=== PATIENT | male | born 1980 | race Caucasian/White ===

== ENCOUNTER 2019-04-03 20:49 | Emergency (ER) | payer BC ==
[2019-04-03 21:11] VITALS: BP 130/74
--- NOTE | 2019-04-03 21:25 | UC ---
Laceration HPI - HPI Summary HPI Summary: 39-year-old male presents for laceration to his left cheek just below his left eye. States that approximately 6:45 PM he was [place] and accidentally walked into a small tree branch causing the laceration. Bleeding was controlled with direct pressure prior to arrival. Tetanus status is unknown. Denies any injury to the eye. - History Of Current Complaint Chief Complaint: UCLaceration Stated Complaint: LACERATION FACE Time Seen by Provider: 04/03/19 21:13 Hx Obtained From: Patient Pain Intensity: 0 - Allergies/Home Medications Allergies/Adverse Reactions: Allergies Allergy/AdvReac Type Severity Reaction Status Date / Time No Known Allergies Allergy Verified 04/03/19 21:03 Home Medications: Home Medications Esomeprazole Magnesium [Nexium 24Hr] 20 mg PO EVERY OTHER DAY PRN 04/03/19 [ History Confirmed 04/03/19] NK [No Home Medications Reported] 04/03/19 [History Confirmed 04/03/19] PMH/Surg Hx/FS Hx/Imm Hx Previously Healthy: Yes GI/ History: Gastroesophageal Reflux - Surgical History Surgical History: Yes Surgery Procedure, Year, and Place: vasectomy - Family History Known Family History: Positive: Non-Contributory - Social History Occupation: Employed Full-time Lives: With Family Alcohol Use: Weekly Alcohol Amount: 6 Substance Use Type: None Smoking Status (MU): Never Smoked Tobacco Review of Systems All Other Systems Reviewed And Are Negative: Yes Constitutional: Positive: Negative Skin: Positive: Other - See HPI Eyes: Negative: Blurred Vision, Diplopia, Drainage, Eye Redness, Photophobia Respiratory: Positive: Negative Cardiovascular: Positive: Negative Gastrointestinal: Positive: Negative Genitourinary: Positive: Negative Musculoskeletal: Positive: Negative Neurological: Positive: Negative Is Patient Immunocompromised?: No Physical Exam - Summary Physical Exam Summary: GENERAL APPEARANCE: Well developed, well nourished, alert and cooperative, and appears to be in no acute distress. HEAD: Superficial, linear laceration with well approximated wound margins to the left cheek below the left eye. Bleeding controlled. EYES: Conjunctiva clear. No drainage. PERRL, EOM intact. Vision is grossly intact. CARDIAC: Normal S1 and S2. No S3, S4 or murmurs. Rhythm is regular. There is no peripheral edema, cyanosis or pallor. Extremities are warm and well perfused. Capillary refill is less than 2 seconds. Peripheral pulses intact. LUNGS: Clear to auscultation without rales, rhonchi, wheezing or diminished breath sounds. ABDOMEN: Positive bowel sounds. Soft, nondistended, nontender. No guarding or rebound. No masses or hepatosplenomegally. MUSKULOSKELETAL: ROM intact to all extremities. No joint erythema or tenderness. Normal muscular development. Normal gait. SKIN: Skin normal color, texture and turgor. Triage Information Reviewed: Yes Vital Signs: Initial Vital Signs Temp 97.9 F 04/03/19 21:06 Pulse 78 04/03/19 21:06 Resp 16 04/03/19 21:06 BP 130/74 04/03/19 21:06 Pulse Ox 98 04/03/19 21:06 Vital Signs Reviewed: Yes Images Head: 1 - Superficial linear laceration with all approximated wound margins and bleeding controlled. Laceration Repair - Laceration Repair 1 Description: Linear Laceration Size After Repair: Length (cm) - 2.5 cm Irrigation With Pressure Irrigation Device: Yes Closure Material: SteriStrips Laceration Course/Dx - Course/Dx Course Of Treatment: 39-year-old male presents for laceration to his left cheek just below his left eye. States that approximately 6:45 PM he was [place] and accidentally walked into a small tree branch causing the laceration. Bleeding was controlled with direct pressure prior to arrival. Tetanus status is unknown. Denies any injury to the eye. Afebrile. Vital signs stable. Patient had a superficial, linear laceration with well approximated wound margins to the left cheek below his left eye with bleeding controlled. Remainder of exam was unremarkable. The wound was irrigated prior to repair by the RN using sterile saline. The wound margins were then brought into good alignment and a total of five 1/8 in Steri-Strips were used to close the wound. Total length of the wound after closure was 2.5 cm. A small amount of antibiotic ointment was applied. Patient's tetanus was updated. Wound care, anticipatory guidance, and warning symptoms were reviewed with the patient. He is to follow-up here or with his primary care provider as needed. Patient verbalizes understanding and agrees with plan of care. - Differential Dx - Laceration/Wound Differental Diagnoses: Laceration - Diagnosis Provider Diagnosis: Simple laceration of face Discharge ED - Sign-Out/Discharge Documenting (check all that apply): Patient Departure All imaging exams completed and their final reports reviewed: No Studies - Discharge Plan Condition: Stable Disposition: HOME Patient Education Materials: Steristrips (ED), Facial Laceration (ED) Referrals: No Primary Care Phys,NOPCP [Primary Care Provider] - Additional Instructions: We updated her tetanus (Tdap) in the clinic today. Be sure you notify your primary care provider so they can update your records. Your laceration was repaired using Steri-Strips. The Steri-Strips will slowly peel up from the ends over the next few days. You may trim the ends as needed but do not pull off or you may reopen the wound. You may provide and shower as normal. Take acetaminophen (Tylenol) or ibuprofen (Advil, Motrin) according to directions as needed for pain. Watch for signs of infection including fever greater than 100.5 F, severe pain not managed with with pain medicine, redness that spreads,pus draining from the wound, or any worsening of symptoms. Seek immediate medical attention if any of these occur. - Billing Disposition and Condition Condition: STABLE Disposition: Home
[2019-04-03] MEDS ORDERED: Tetan/Diph/Pertus SYR(Tdap)* 0.5 ML SYR(BOOSTRIX) use SYR contains LATEX IM ONE (21:30)
== END 2019-04-03 22:00 | disposition home or self-care (01) ==
LOC: UCCORT 20:49
DX: S01.412A Laceration without foreign body of left cheek and temporomandibular area, initial encounter (principal); K21.9 Gastro-esophageal reflux disease without esophagitis; Z79.899 Other long term (current) drug therapy; Z23 Encounter for immunization; W22.09XA Striking against other stationary object, initial encounter; Y92.9 Unspecified place or not applicable
CPT/HCPCS: 90471; 90715; 99202; G0463